=== PATIENT | female | born 1995 | race Two or more races ===

== ENCOUNTER 2020-06-24 00:35 | Emergency (ER) | payer OTHER ==
[~2020-06-24] VITALS: Ht 152.4 cm; Wt 57.0 kg
[2020-06-24] MEDS ORDERED: IBUP1TAB5 PO (00:43)
[2020-06-24 01:25] LABS: BASO % 0.4 % (0.0-1.0); EOS # 0.1 10^3/uL (0.0-0.5); EOS % 1.1 % (0.0-3.0); HEMATOCRIT 43.4 % (36.0-47.0); HEMOGLOBIN 14.3 g/dl (12.0-15.5); LYMPH % 35.9 % (24.0-44.0); MEAN CORPUSCULAR HEMOGLOBIN 32.1 pg (27.0-33.0); MEAN CORPUSCULAR HGB CONC 32.9 g/dl (32.0-36.5); MEAN CORPUSCULAR VOLUME 97.5 fl (80.0-96.0); MONO # 0.7 10^3/uL (0.0-0.8); MONO % 8.4 % (2.0-8.0); NEUTROPHILS # 4.5 10^3/uL (1.5-8.5); PLATELET COUNT, AUTOMATED 341 10^3/uL (150-450); RED BLOOD COUNT 4.45 10^6/uL (4.00-5.40); WHITE BLOOD COUNT 8.4 10^3/uL (4.0-10.0)
[2020-06-24] MEDS ORDERED: KETOROLAC 30 MG/ML 1ML VIAL IV ONE (01:45)
[2020-06-24] MEDS ORDERED: NS 1,000 ML IV ONE (01:45)
[2020-06-24] MEDS ORDERED: ISOVUE-370 76% 100ML VIAL As Ordered ONE (01:48)
[2020-06-24 01:50] LABS: ALBUMIN 4.1 GM/DL (3.2-5.2); ALT/SGPT 21 U/L (12-78); BILIRUBIN,DIRECT 0.1 MG/DL (0.0-0.2); BILIRUBIN,TOTAL 0.3 MG/DL (0.2-1.0); BLOOD UREA NITROGEN 17 MG/DL (7-18); CALCIUM LEVEL 9.4 MG/DL (8.5-10.1); CARBON DIOXIDE LEVEL 26 MEQ/L (21-32); CHLORIDE LEVEL 106 MEQ/L (98-107); CREATININE FOR GFR 0.84 MG/DL (0.55-1.30); GLOMERULAR FILTRATION RATE > 60.0 (>60); GLUCOSE, FASTING 106 MG/DL (70-100); LIPASE 188 U/L (73-393); POTASSIUM SERUM 3.7 MEQ/L (3.5-5.1); SODIUM LEVEL 138 MEQ/L (136-145); TOTAL PROTEIN 8.1 GM/DL (6.4-8.2)
--- NOTE | 2020-06-24 02:54 | REPVR ---
PROCEDURE INFORMATION: Exam: CT Abdomen And Pelvis With Contrast Exam date and time: 06/24/2020 1:43 AM Age: 25 years old Clinical indication: Abdominal pain; Generalized; Additional info: Generalized abdominal pain, possible obturator sign TECHNIQUE: Imaging protocol: Computed tomography of the abdomen and pelvis with contrast. Radiation optimization: All CT scans at this facility use at least one of these dose optimization techniques: automated exposure control; mA and/or kV adjustment per patient size (includes targeted exams where dose is matched to clinical indication); or iterative reconstruction. Contrast material: ISO; Contrast volume: 100 ml; Contrast route: INTRAVENOUS (IV); COMPARISON: No relevant prior studies available. FINDINGS: Liver: Normal. No mass. Gallbladder and bile ducts: Normal. No calcified stones. No ductal dilation. Pancreas: Normal. No ductal dilation. Spleen: Normal. No splenomegaly. Adrenal glands: Normal. No mass. Kidneys and ureters: Normal. No hydronephrosis. Stomach and bowel: Diffuse thickening of the colon from the cecum to the mid transverse colon. Fluid and stool in the colon. No abnormal bowel dilatation. Negative for colonic diverticulitis. Appendix: Appendix is normal. Intraperitoneal space: Unremarkable. No free air. No significant fluid collection. Vasculature: Unremarkable. No abdominal aortic aneurysm. Lymph nodes: Mildly enlarged right inguinal nodes. Urinary bladder: Unremarkable as visualized. Reproductive: Uterus is normal. Bones/joints: No acute fracture. Benign bone island in the intratrochanteric region of the left femur. Soft tissues: Unremarkable. IMPRESSION: 1. Diffuse thickening of the colon from the cecum to the mid transverse colon. Differential diagnosis includes infectious versus inflammatory versus ischemic colitis. 2. Appendix is normal. Electronically signed by: Yunior Ray On 06/24/2020 02:53:31 AM
[2020-06-24] MEDS ORDERED: CIPROFLOXACIN 500MG TABLET PO ONE (04:55)
[2020-06-24] MEDS ORDERED: metroNIDAZOLE (FLAGYL) 500MG TABLET PO ONE (04:55)
[2020-06-24 04:57] VITALS: BP 103/50
[2020-06-24] MEDS ORDERED: CIPR-249 PO (04:57)
[2020-06-24] MEDS ORDERED: FLAG500T PO (04:57)
== END 2020-06-24 05:09 | disposition home or self-care (01) ==
LOC: M ED 00:35
DX: K52.9 Noninfective gastroenteritis and colitis, unspecified (principal)
CPT/HCPCS: 74177; 80048; 80076; 81001; 83690; 84702; 85025; 96361; 96374; 99284; J1885; Q9967

== ENCOUNTER → 2020-10-26 | Outpatient (CLI) | payer OTHER ==
[~2020-10-26] MED LIST: CIPR-249 PO; FLAG500T PO; IBUP1TAB5 PO
[2020-10-26 13:44] LABS: BASO % 0.4 % (0.0-1.0); EOS % 0.3 % (0.0-3.0); HEMATOCRIT 41.2 % (36.0-47.0); HEMOGLOBIN 13.5 g/dl (12.0-15.5); LYMPH # 2.2 10^3/uL (1.5-5.0); MEAN CORPUSCULAR HEMOGLOBIN 32.1 pg (27.0-33.0); MEAN CORPUSCULAR HGB CONC 32.8 g/dl (32.0-36.5); MEAN CORPUSCULAR VOLUME 97.9 fl (80.0-96.0); MONO # 0.4 10^3/uL (0.0-0.8); MONO % 4.8 % (2.0-8.0); NEUTROPHILS # 5.1 10^3/uL (1.5-8.5); NEUTROPHILS % 66.2 % (36.0-66.0); PLATELET COUNT, AUTOMATED 332 10^3/uL (150-450); RED BLOOD COUNT 4.21 10^6/uL (4.00-5.40); WHITE BLOOD COUNT 7.7 10^3/uL (4.0-10.0)
[2020-10-26 14:12] LABS: ALBUMIN 3.7 GM/DL (3.2-5.2); ALT/SGPT 21 U/L (12-78); BILIRUBIN,DIRECT < 0.1 MG/DL (0.0-0.2); BILIRUBIN,TOTAL 0.2 MG/DL (0.2-1.0); BLOOD UREA NITROGEN 11 MG/DL (7-18); C REACTIVE PROTEIN QUANTITATIV < 0.30 MG/DL (0.00-0.30); CREATININE FOR GFR 0.73 MG/DL (0.55-1.30); GLOMERULAR FILTRATION RATE > 60.0 (>60); LDH LACTATE DEHYDROGENASE 156 U/L (84-246); TOTAL PROTEIN 7.7 GM/DL (6.4-8.2)
[2020-10-26 14:24] LABS: ERYTHROCYTE SEDIMENTATION RATE 19 mm/hr (0-20)
== END ==
LOC: M LAB 12:48
PROVIDERS: ATTEND Internal Medicine Gastroenterology
DX: R19.7 Diarrhea, unspecified (principal)

== ENCOUNTER 2020-12-19 13:36 | Day surgery (SDC) | payer OTHER ==
[~2020-12-19] VITALS: Ht 152.4 cm; Wt 54.8 kg
[~2020-12-19 13:36] MED LIST changes: +LIDOCAINE 1% MDV 20ML VIAL SQ PRN; +LR 1,000 ML IV ONE; +NS 1,000 ML IV ONE
--- OUTSIDE RECORDS SUMMARY | 2020-12-19 13:41 | CCD | Continuity of Care Document ---
Author Author Veronica CAVAZOS Organization Unknown Address [address], [address] [place] [address] Phone [phone] Care Team Providers Care Heritage Consultant Name Role Phone Shraddha Martino AUTM [phone] Problems Description No Information Available Social History Type Date Description Comments Sex Unknown ETOH Use 2-3/d Tobacco Use Start: Unknown Patient is a current smoker, smo kes every day Allergies, Adverse Reactions, Alerts Description No Known Drug Allergies Medications Active Medications SIG Qnty Indications Ordering Provide r Date Suprep Bowel Prep Kit 17.5-3.13-1.6GM/177ML Solution use as directed for the colonoscopy prep aration. ( if not fully covered by insurance, please fill gavilyte script). 354ml R19.7 Catrachito Cavazos M.D. 10/26/[address] take 4 tablets together as per bowel preparation instructions. 4tabs R19.7 Catrachito Cavazos M.D. 10/26/2020 BCP Unknown Immunizations Description No Information Available Vital Signs Date Vital Result Comment 10/26/2020 11:05am BP Systolic 116 mmHg BP Diastolic 60 mmHg Height 60 inches 5'0" Weight 122.00 lb BMI (Body Mass Index) 23.8 kg/m2 [place] Body Weight 100 lb Weight 55.339 kg BSA (Body Surface Area) 1.51 m2 Results Test Acquired Date Facility Test Result H/L Range Note CBC With Differential 10/26/2020 [facility] [address] [place] [address] [phone] White Blood Count 7.7 10 Normal 4.0-10.0 Red Blood Count 4.21 10 Normal 4.00-5.40 Hemoglobin 13.5 g/dL Normal 12.0-15.5 Hematocrit 41.2 % Normal 36.0-47.0 Mean Corpuscular Volume 97.9 fl High 80.0-96.0 Mean Corpuscular Hemoglobin 32.1 pg Normal 27.0-33.0 Mean Corpuscular HGB Conc 32.8 g/dL Normal 32.0-36.5 Red Cell Distribution Width 12.4 % Normal 11.5-14.5 Platelet Count, Automated 332 10 Normal 150-450 Neutrophils % 66.2 % High 36.0-66.0 Lymph % 28.0 % Normal 24.0-44.0 [place] % 4.8 % Normal 2.0-8.0 Eos % 0.3 % Normal 0.0-3.0 Baso % 0.4 % Normal 0.0-1.0 Immature Granulocyte % 0.3 % Normal 0-3.0 Nucleated Red Blood Cell % 0.0 % Normal 0-0 Neutrophils # 5.1 10 Normal 1.5-8.5 Lymph # 2.2 10 Normal 1.5-5.0 [place] # 0.4 10 Normal 0.0-0.8 Eos # 0.0 10 Normal 0.0-0.5 Baso # 0.0 10 Normal 0.0-0.2 BUN & Creatinine ([facility]) 10/26/2020 [facility] [address] [place] [address] [id number] [phone] Blood Urea Nitrogen 11 mg/dL Normal 7-18 Creatinine With GFR 10/26/2020 [facility] Main Lab [address] [place] [address] [id number] [phone] Creatinine For GFR 0.73 mg/dL Normal 0.55-1.30 Glomerular Filtration Rate > 60.0 Normal >60 1 Liver Profile 10/26/2020 [facility] Main Lab [address] [place] [address] [id number] [phone] Ast/Sgot 14 U/L Normal 7-37 Alt/SGPT 21 U/L Normal 12-78 Alkaline Phosphatase 41 U/L Low 45-117 Bilirubin,Total 0.2 mg/dL Normal 0.2-1.0 Bilirubin,Direct < 0.1 mg/dL Normal 0.0-0.2 Total Protein 7.7 GM/DL Normal 6.4-8.2 Albumin 3.7 GM/DL Normal 3.2-5.2 Albumin/Globulin Ratio 0.9 Low 1.2-2.2 Laboratory test finding 10/26/2020 [facility] Main Lab [address] [place] [address] [phone] Erythrocyte Sedimentation Rate 19 mm/hr Normal 0 -20 C Reactive Protein Quantitativ < 0.30 mg/dL Normal 0.00-0.30 LDH Lactate Dehydrogenase 156 U/L Normal 84-246 Calprotectin Stool Sendout <pending> Stool For Polys <pending> 1 Units are mL/min/1.73 m2 Chronic Kidney Disease Staging per NKF: Stage I & II GFR >=60 Normal to Mildly Decreased Stage III GFR 30-59 Moderately Decreased Stage IV GFR 15-29 Severely Decreased Stage V GFR <15 Very Little GFR Left ESRD GFR <15 on MEDICAL TECHNOLOGIST HEMATOLOGY Procedures Date Code Description Status 10/26/2020 87584 Office/Outpatient New Moderate M DM 45-59 Minutes Completed Medical Devices Description No Information Available Encounters Type Date Location Provider Dx Diagnosis Office Visit 10/26/2020 11:10a [facility] Pra audrey Cavazos M.D. R19.7 Diarrhea, unspecified K62.5 Hemorrhage of anus and rectu m R93.3 Abnormal findings on dx imag ing of prt digestive tract R10.84 Generalized abdominal pain Assessments Date Code Description Provider 10/26/2020 R19.7 Diarrhea, unspecified Catrachito Cavazos M.D. 10/26/2020 K62.5 Hemorrhage of anus and rectum Celena Cavazos M.D. 10/26/2020 R93.3 Abnormal findings on diagnostic imaging of other parts of digestive tract Catrachito Cavazos M.D. 10/26/2020 R10.84 Generalized abdominal pain Baltazar Cavazos M.D. Plan of Treatment 10/26/2020 - Catrachito Cavazos M.D.* R19.7 Diarrhea, unspecified * K62.5 Hemorrhage of anus and rectum * R93.3 Abnormal findings on diagnostic imaging of other parts of digestive tract * R10.84 Generalized abdominal pain * * New Medication:* Suprep Bowel Prep Kit 17.5-3.13-1.6 GM/177ML * Dulcolax 5 mg * New Orders:* Colonoscopy, Ordered: 10/26/20 * Comments:* Impression:-- Chronic intermittent diarrhea with rectal bleeding and generalized abdominal pain, noted with abnormal CT scan findings in ER visit in [facility] in June 2020 -- Needs further evaluation -- DDx-- Crohns disease vs infectious colitis vs ischemic colitis vs less likely colon polyps. * Recommendations:* -- Educated patient about the prior test results and need for further work up. -- Will obtain stool and blood testing. -- Will schedule for colonoscopy. The procedure, indications, risks (bleeding, perforation, infection, hypotension, respiratory depression, allergy, need for endotracheal intubation, surgery, or even ), benefits, limitations (e.g., missing a lesion), and all other alternatives (including no intervention) were explained to the patient who understood and agreed for the procedure. -- Patient is educated on smoking cessation. -- Return to GI clinic 2 weeks after the above. -- follow up with PMD for routine medical care and other age appropriate health maintenance. Functional Status Description No Information Available Mental Status Description No Information Available Referrals Refer to Reason for Referral Status Appt Date Catrachito Cavazos M.D. UNSPECIFIED ABDOMINAL PAIN - 1 NEW PT 06/23 to 12/20; 3 ESTABLISHED 06/23/20 to 06/23/21 Scheduled 10/04/2020 [facility] [address], [address] [place], [place] [id number] [phone]
--- OUTSIDE RECORDS SUMMARY | 2020-12-19 13:41 | CCD ---
Author Author [facility] Organization [facility] Address Unknown Phone Unavailable Care Team Providers Care Digital Color Press Operator Name Role Phone Becki ADAME MD Unavailable Unavailable Becki ADAME MD Unavailable Unavailable Becki ADAME MD Unavailable Unavailable Becki ADAME MD Unavailable Unavailable Becki ADAME MD Unavailable Unavailable Becki ADAME MD Unavailable Unavailable Becki ADAME MD Unavailable Unavailable Becki ADAME MD Unavailable Unavailable Becki ADAME MD Unavailable Unavailable Becki ADAME MD Unavailable Unavailable Becki ADAME MD Unavailable Unavailable Becki ADAME MD Unavailable Unavailable Becki ADAME MD Unavailable Unavailable Becki ADAME MD Unavailable Unavailable Becki ADAME MD Unavailable Unavailable Becki ADAME MD Unavailable Unavailable Becki ADAME MD Unavailable Unavailable Becki ADAME MD Unavailable Unavailable Becki ADAME MD Unavailable Unavailable Becki ADAME MD Unavailable Unavailable Becki ADAME MD Unavailable Unavailable Becki ADAME MD Unavailable Unavailable Becki ADAME MD Unavailable Unavailable Becki ADAME MD Unavailable Unavailable Becki ADAME MD Unavailable Unavailable Becki ADAME MD Unavailable Unavailable Becki ADAME MD Unavailable Unavailable Becki ADAME MD Unavailable Unavailable Becki ADAME MD Unavailable Unavailable Becki ADAME MD Unavailable Unavailable Becki ADAME MD Unavailable Unavailable Becki ADAME MD Unavailable Unavailable Becki ADAME MD Unavailable Unavailable Re-disclosure Warning The records that you are about to access may contain information from federally-assisted alcohol or drug abuse programs. If such information is present, then the following federally mandated warning applies: This information has been disclosed to you from records protected by federal confidentiality rules (42 CFR part 2). The federal rules prohibit you from making any further disclosure of this information unless further disclosure is expressly permitted by the written consent of the person to whom it pertains or as otherwise permitted by 42 CFR part 2. A general authorization for the release of medical or other information is NOT sufficient for this purpose. The Federal rules restrict any use of the information to criminally investigate or prosecute any alcohol or drug abuse patient.The records that you are about to access may contain highly sensitive health information, the redisclosure of which is protected by Article 27-F of the [place] Public Health law. If you continue you may have access to information: Regarding HIV / AIDS; Provided by facilities licensed or operated by the [place] Office of Mental Health; or Provided by the [place] Office for People With Developmental Disabilities. If such information is present, then the following [place] mandated warning applies: This information has been disclosed to you from confidential records which are protected by state law. State law prohibits you from making any further disclosure of this information without the specific written consent of the person to whom it pertains, or as otherwise permitted by law. Any unauthorized further disclosure in violation of state law may result in a fine or halfway sentence or both. A general authorization for the release of medical or other information is NOT sufficient authorization for further disc losure. Encounters Encounter Providers Location Date Indications Data Source(s ) Outpatient Attender: SENAIT Linton/Brea/Juan miranda/Jodee 10/26/2020 11:10:00 AM EDT [facility] ([facility], ) Medications Medication Brand Name Start Date Product Form Dose Route Admi nistrative Instructions Pharmacy Instructions Status Indications Reaction Description Data Source(s) Bisacodyl 5 MG Delayed Release Oral Tablet [Dulcolax] Dulcol ax 10/26/2020 12:00:00 AM EDT active M [facility] ([facility], ) Suprep Bowel Prep Kit Suprep Bowel Prep Kit 10/26/2020 12:00:00 AM EDT active [facility] ([facility], ) Insurance Providers Payer name Policy type / Coverage type Policy ID Covered alliance party ID Covered alliance party's relationship to love Policy Love Plan Information [facility] ACTIVE DUTY [id number] Problems, Conditions, and Diagnoses No Information Surgeries/Procedures Procedure Description Date Indications Data Source(s) OFFICE OUTPATIENT NEW 45 MINUTES 10/26/2020 12:00:00 A M EDT [facility] ([facility]) Results ID Date Data Source [id number] 12/14/2020 10:40:00 AM EDT [facility] Name Value Range Interpretation Code Description Data Marysol rce(s) Supporting Document(s) SARS coronavirus 2 RNA Not Detected [facility] [place] This lab was ordered by [facility] and reported by [facility]. ID Date Data Source [id number] 10/26/2020 01:10:00 PM EDT [facility] ([facility]) Name Value Range Interpretation Code Description Data Marysol rce(s) Supporting Document(s) Erythrocyte sedimentation rate by Westergren method 19 mm/hr 0-20 Normal (applies to non-numeric results) [facility] ([facility]) C reactive protein [Mass/volume] in Serum or Plasma by High sensitivity method Laboratory test result 0.00-0.30 Normal (applies to non-numeric results) [facility] ([facility]) Lactate dehydrogenase [Enzymatic activity/volume] in Serum o r Plasma 156 U/L 84-246 Normal (applies to non-numeric results) [facility] ([facility]) Lactoferrin [Presence] in Stool by Immunoassay Laboratory test result [facility] ([facility]) Calprotectin [Mass/mass] in Stool Laboratory test result [facility] ([facility]) ID Date Data Source [id number] 10/26/2020 01:10:00 PM EDT [facility] ([facility]) Name Value Range Interpretation Code Description Data Marysol rce(s) Supporting Document(s) Ast/Sgot 14 U/L 7-37 Normal (applies to non-numeric resul ts) [facility]) Alt/SGPT 21 U/L 12-78 Normal (applies to non-numeric resul ts) [facility] ([facility]) Alkaline Phosphatase 41 U/L 45-117 Below low normal [facility] ([facility]) Bilirubin,Total 0.2 mg/dL 0.2-1.0 Normal (applies to non-numeric results) [facility] ([facility]) Total Protein 7.7 GM/DL 6.4-8.2 Normal (applies to non-numeric re sults) [facility] ([facility]) Bilirubin,Direct Laboratory test result 0.0-0.2 Normal ( applies to non-numeric results) [facility] ([facility]) Albumin/Globulin Ratio 0.9 1.2-2.2 Below low normal [facility] ([facility]) Albumin 3.7 GM/DL 3.2-5.2 Normal (applies to non-numeric resul ts) [facility] ([facility]) ID Date Data Source [id number] 10/26/2020 01:10:00 PM EDT [facility] ([facility]) Name Value Range Interpretation Code Description Data Marysol rce(s) Supporting Document(s) Glomerular Filtration Rate Laboratory test result Normal (applies to non- numeric results) [facility]) <content>Units are mL/min/1.73 m2</content>
<content></content>
<content>Chronic Kidney Disease Staging per NKF:</content>
<content></content>
<content>Stage I & II GFR >=60 Normal to Mildly Decreased</content>
<content>Stage III GFR 30- 59 Moderately Decreased</content>
<content>Stage IV GFR 15-29 Severely Decreased</content>
<content>Stage V GFR <15 Very Little GFR Left</content>
<content>ESRD GFR <15 on CUSTOMS ENTRY WRITER</content>
<content></content> Creatinine For GFR 0.73 mg/dL 0.55-1.30 Normal (applies to non -numeric results) [facility]) ID Date Data Source [id number] 10/26/2020 01:10:00 PM EDT [facility] ([facility]) Name Value Range Interpretation Code Description Data Marysol rce(s) Supporting Document(s) Urea nitrogen [Mass/volume] in Serum or Plasma 11 mg/dL 7 -18 Normal (applies to non-numeric results) [facility] ([facility]) ID Date Data Source [id number] 10/26/2020 01:10:00 PM EDT [facility] ([facility]) Name Value Range Interpretation Code Description Data Marysol rce(s) Supporting Document(s) White Blood Count 7.7 10 4.0-10.0 Normal (applies to non-numeri c results) [facility] ([facility]) Red Blood Count 4.21 10 4.00-5.40 Normal (applies to non-numeric results) [facility] ([facility]) Hemoglobin 13.5 g/dL 12.0-15.5 Normal (applies to non-numeric resul ts) [facility] ([facility]) Hematocrit 41.2 % 36.0-47.0 Normal (applies to non-numeric resul ts) [facility]) Mean Corpuscular Volume 97.9 fl 80.0-96.0 Above high normal [facility] ([facility]) Mean Corpuscular HGB Conc 32.8 g/dL 32.0-36.5 Normal (applies to non-numeric results) [facility]) Mean Corpuscular Hemoglobin 32.1 pg 27.0-33.0 Norm al (applies to non-numeric results) [facility] ([facility]) Neutrophils % 66.2 % 36.0-66.0 Above high normal [facility] ([facility]) Platelet Count, Automated 332 10 150-450 Normal (applies to non-numeric results) [facility]) Red Cell Distribution Width 12.4 % 11.5-14.5 Norm al (applies to non-numeric results) [facility]) Lymph % 28.0 % 24.0-44.0 Normal (applies to non-numeric resul ts) [facility] ([facility], ) [place] % 4.8 % 2.0-8.0 Normal (applies to non-numeric resul ts) [facility]) Eos % 0.3 % 0.0-3.0 Normal (applies to non-numeric resul ts) [facility] ([facility]) Baso % 0.4 % 0.0-1.0 Normal (applies to non-numeric resul ts) [facility] ([facility]) Nucleated Red Blood Cell % 0.0 % 0-0 Normal (applies to n on-numeric results) [facility] ([facility]) Immature Granulocyte % 0.3 % 0-3.0 Normal (applies to non-n umeric results) [facility]) Neutrophils # 5.1 10 1.5-8.5 Normal (applies to non-numeric re sults) [facility] ([facility]) Lymph # 2.2 10 1.5-5.0 Normal (applies to non-numeric resul ts) [facility] ([facility]) [place] # 0.4 10 0.0-0.8 Normal (applies to non-numeric resul ts) [facility] ([facility]) Eos # 0.0 10 0.0-0.5 Normal (applies to non-numeric resul ts) [facility] ([facility]) Baso # 0.0 10 0.0-0.2 Normal (applies to non-numeric resul ts) [facility] ([facility]) Procedure Social History No Information Vital Signs ID Date Data Source UNK Name Value Range Interpretation Code Description Data Source(s) Systolic blood pressure 116 mm[Hg] 116 mm[Hg] [facility] Diastolic blood pressure 60 mm[Hg] 60 mm[Hg] [facility] ([facility]) Body mass index (BMI) [Ratio] 23.8 kg/m2 23.8 k g/m2 [facility]) Body height 60 [in_i] 60 [in_i] [facility] 5'0" Body weight 55.339 kg 55.339 kg [facility] ([facility], ) Body surface area Derived from formula 1.51 m2 1.51 m2 [facility] ([facility]) Jber body weight 100 [lb_av] 100 [lb_av] [facility] T ([facility], ) Body weight 122.00 [lb_av] 122.00 [facility]_av[facility]
[2020-12-19] MEDS ORDERED: LIDOCAINE 2% 100MG/5ML SDV (FOR ANES.) As Ordered ONE (15:37)
[2020-12-19] MEDS ORDERED: propofoL 200 MG/20 ML VIAL As Ordered ONE (15:37)
--- NOTE | 2020-12-19 15:40 | ROOR ---
Patient Name: Veronica Childs Procedure Date: 12/19/2020 3:09 PM Date of : 1995 Age: 25 Room: [facility] Gender: Female Note Status: Finalized Procedure: Colonoscopy Indications: Abnormal CT of the GI tract Providers: Catrachito Cavazos MD Referring MD: Shraddha Martino Requesting Provider: Medicines: Monitored Anesthesia Care Complications: No immediate complications. Procedure: Pre-Anesthesia Assessment: - Prior to the procedure, a History and Physical was performed, and patient medications and allergies were reviewed. The patient is competent. The risks and benefits of the procedure and the sedation options and risks were discussed with the patient. All questions were answered and informed consent was obtained. Patient identification and proposed procedure were verified by the physician, the nurse and the anesthesiologist in the procedure room. Mental Status Examination: alert and oriented. Airway Examination: normal oropharyngeal airway and neck mobility. Respiratory Examination: clear to auscultation. CV Examination: normal. Prophylactic Antibiotics: The patient does not require prophylactic antibiotics. Prior Anticoagulants: The patient has taken no previous anticoagulant or antiplatelet agents. ASA Grade Assessment: II - A patient with mild systemic disease. After reviewing the risks and benefits, the patient was deemed in satisfactory condition to undergo the procedure. The anesthesia plan was to use monitored anesthesia care (MAC). Immediately prior to administration of medications, the patient was re-assessed for adequacy to receive sedatives. The heart rate, respiratory rate, oxygen saturations, blood pressure, adequacy of pulmonary ventilation, and response to care were monitored throughout the procedure. The physical status of the patient was re-assessed after the procedure. The Colonoscope was introduced through the anus and advanced to the terminal ileum, with identification of the appendiceal orifice and IC valve. The colonoscopy was performed without difficulty. The patient tolerated the procedure well. The quality of the bowel preparation was good. The terminal ileum, ileocecal valve, appendiceal orifice, and rectum were photographed. Scope insertion time was 2 minutes. Scope withdrawal time was 8 minutes. The total duration of the procedure was 10 minutes. Findings: The perianal and digital rectal examinations were normal. The terminal ileum appeared normal. Normal mucosa was found in the entire colon. Biopsies for histology were taken with a cold forceps from the cecum and ascending colon for evaluation of microscopic colitis. Verification of patient identification for the specimen was done by the physician and nurse using the patient's name, date and medical record number. Estimated blood loss was minimal. No other significant abnormalities were identified in a careful examination of the remainder of the colon. The retroflexed view of the distal rectum and anal verge was normal and showed no anal or rectal abnormalities. Impression: - The examined portion of the ileum was normal. - Normal mucosa in the entire examined colon. Biopsied. - The distal rectum and anal verge are normal on retroflexion view. Recommendation: - Patient has a contact number available for emergencies. The signs and symptoms of potential delayed complications were discussed with the patient. Return to normal activities tomorrow. Written discharge instructions were provided to the patient. - High fiber diet. - Continue present medications. - Await pathology results. - Repeat colonoscopy at age 51 for screening purposes. - Telephone GI clinic for pathology results in 2 weeks. - Return to GI clinic if persistent symptoms or new symptoms. - Return to primary care physician. Procedure Code(s): --- Professional --- 86448, Colonoscopy, flexible; with biopsy, single or multiple Diagnosis Code(s): --- Professional --- R93.3, Abnormal findings on diagnostic imaging of other parts of digestive tract CPT copyright 2019 [employer]. All rights reserved. The codes documented in this report are preliminary and upon [facility] specialist review may be revised to meet current compliance requirements. Catrachito Cavazos MD Catrachito Cavazos MD 12/19/2020 3:40:34 PM Electronically signed by Catrachito Cavazos MD Number of Addenda: 0 Note Initiated On: 12/19/2020 3:09 PM Estimated Blood Loss: Estimated blood loss was minimal.
[2020-12-19 15:50] VITALS: BP 106/58
== END 2020-12-19 16:16 | disposition home or self-care (01) ==
LOC: M SDC 13:36
PROVIDERS: ATTEND Internal Medicine Gastroenterology
DX: R93.3 Abnormal findings on diagnostic imaging of other parts of digestive tract (principal); Z87.891 Personal history of nicotine dependence

== ENCOUNTER 2021-03-03 13:45 | Emergency (ER) | payer OTHER ==
[~2021-03-03] VITALS: Ht 152.4 cm; Wt 55.5 kg
[~2021-03-03 13:45] MED LIST changes: -LIDOCAINE 1% MDV 20ML VIAL SQ PRN; -LR 1,000 ML IV ONE; -NS 1,000 ML IV ONE
[2021-03-03 13:46] VITALS: BP 111/57
== END 2021-03-03 15:11 | disposition left against medical advice (07) ==
LOC: M ED 13:45
DX: Z53.21 Procedure and treatment not carried out due to patient leaving prior to being seen by health care provider (principal)

== ENCOUNTER 2021-07-20 08:28 | Emergency (ER) | payer OTHER ==
[~2021-07-20] VITALS: Ht 152.4 cm; Wt 57.3 kg
[2021-07-20 08:28] VITALS: BP 122/78
[2021-07-20] MEDS ORDERED: bcp PO (08:45)
[2021-07-20] MEDS ORDERED: ACETAMINOPHEN 325 MG TAB PO ONE (11:25)
== END 2021-07-20 12:27 | disposition home or self-care (01) ==
LOC: M ED 08:28
DX: M25.562 Pain in left knee (principal); M25.572 Pain in left ankle and joints of left foot; W19.XXXA Unspecified fall, initial encounter; Y92.099 Unspecified place in other non-institutional residence as the place of occurrence of the external cause; Y93.9 Activity, unspecified; Y99.9 Unspecified external cause status; F17.200 Nicotine dependence, unspecified, uncomplicated; Z82.49 Family history of ischemic heart disease and other diseases of the circulatory system; Z79.3 Long term (current) use of hormonal contraceptives